=== PATIENT | male | born 1975 | race Caucasian/White ===

== ENCOUNTER 2016-12-01 11:58 | Emergency (ER) | payer BC ==
[~2016-12-01] VITALS: Ht 180.3 cm; Wt 77.8 kg
[~2016-12-01 11:58] MED LIST: LEVO200T23; OXYC-229
[2016-12-01 12:00] VITALS: BP 128/83
[2016-12-01] MEDS ORDERED: DIAZEPAM 5 MG TABLET ONE (12:52)
[2016-12-01] MEDS ORDERED: DIAZEPAM 5 MG TABLET PO ONE (13:00)
== END 2016-12-01 14:15 | disposition home or self-care (01) ==
LOC: ED 14:09
DX: S39.012A Strain of muscle, fascia and tendon of lower back, initial encounter (principal); F17.200 Nicotine dependence, unspecified, uncomplicated; X58.XXXA Exposure to other specified factors, initial encounter; Y93.89 Activity, other specified; Y92.89 Other specified places as the place of occurrence of the external cause; Y99.8 Other external cause status
CPT/HCPCS: 72110; 99284

== ENCOUNTER 2016-12-23 22:23 | Emergency (ER) | payer BC ==
[~2016-12-23] VITALS: Ht 180.3 cm; Wt 76.7 kg
[2016-12-24] MEDS ORDERED: METHOCARBAMOL 750 MG TABLET PO ONE
[2016-12-24] MEDS ORDERED: KETOROLAC 30 MG/1 ML IM ONE
[2016-12-24] MEDS ORDERED: OXYcodone/APAP 5/325MG TABLET PO ONE
[2016-12-24] MEDS ORDERED: ONDANSETRON ODT 4 MG PO ONE
[2016-12-24] MEDS ORDERED: OXYcodone/APAP 5/325MG TABLET ONE (00:05)
[2016-12-24] MEDS ORDERED: KETOROLAC 30 MG/1 ML ONE (00:05)
[2016-12-24] MEDS ORDERED: METHOCARBAMOL 750 MG TABLET ONE (00:06)
[2016-12-24] MEDS ORDERED: ONDANSETRON ODT 4 MG ONE (00:06)
[2016-12-24 00:49] VITALS: BP 110/66
== END 2016-12-24 00:59 | disposition home or self-care (01) ==
LOC: ED 23:45
DX: M46.1 Sacroiliitis, not elsewhere classified (principal); M54.5 Low back pain; G89.29 Other chronic pain; I25.2 Old myocardial infarction; E07.9 Disorder of thyroid, unspecified; Z88.7 Allergy status to serum and vaccine; Z88.6 Allergy status to analgesic agent; Z88.8 Allergy status to other drugs, medicaments and biological substances
CPT/HCPCS: 72110; 81003; 96372; 99285; J1885; Q0162